=== PATIENT | female | born 1985 | race Caucasian/White ===

== ENCOUNTER 2016-04-23 14:37 | Emergency (ER) | payer OTHER ==
[2016-04-23 15:26] VITALS: BP 137/85
--- NOTE | 2016-04-23 15:50 | UC ---
Throat Pain/Nasal Munir HPI - HPI Summary HPI Summary: ST, fever, body aches, MURRIETA since yesterday. NO cough or nasal congestion. - History of Current Complaint Chief Complaint: UCRespiratory Stated Complaint: SORE THROAT Hx Obtained From: Patient Hx Last Menstrual Period: september ?: No Onset/Duration: Gradual Onset, Lasting Hours Severity: Moderate Cough: None Associated Signs & Symptoms: Positive: Fever. Negative: Vomiting - Allergies/Home Medications Allergies/Adverse Reactions: Allergies Allergy/AdvReac Type Severity Reaction Status Date / Time No Known Allergies Allergy Verified 04/23/16 15:20 Home Medications: Home Medications Dextromethorphan-Phenylephrine [Day-Time Cold/Flu Relief 10-5-325 mg/15Ml] [History] Pseudoephedrine-Guaifenesin [Mucinex D 60-600 mg] 04/23/16 [History] PMH/Surg Hx/FS Hx/Imm Hx - Surgical History Surgical History: Yes Surgery Procedure, Year, and Place: back/herniated disc lumbar - Family History Known Family History: Positive: None - Social History Occupation: Employed Full-time Alcohol Use: Rare Substance Use Type: None Smoking Status (MU): Light Every Day Tobacco Smoker Type: Cigarettes Amount Used/How Often: 1/2 ppd - Immunization History Most Recent Influenza Vaccination: none Review of Systems Constitutional: Fever, Chills, Fatigue Skin: Negative Eyes: Negative ENT: Sore Throat Respiratory: Negative Cardiovascular: Negative Gastrointestinal: Negative Genitourinary: Negative Motor: Negative Neurovascular: Negative Musculoskeletal: Negative Neurological: Headache Psychological: Negative All Other Systems Reviewed And Are Negative: Yes Physical Exam Triage Information Reviewed: Yes Appearance: Well-Appearing, Pain Distress - mild Vital Signs: Initial Vital Signs Temp 100.0 F 04/23/16 15:22 Pulse 111 04/23/16 15:22 Resp 16 04/23/16 15:22 BP 137/85 04/23/16 15:22 Pulse Ox 100 04/23/16 15:22 Vital Signs Reviewed: Yes Eye Exam: Normal Eyes: Positive: Conjunctiva Clear ENT: Positive: Pharyngeal erythema, TMs normal, Tonsillar swelling, Tonsillar exudate, Muffled/hoarse voice - muffled Dental Exam: Normal Neck: Positive: Supple, Enlarged Nodes @ - tonsillar Respiratory Exam: Normal Respiratory: Positive: Chest non-tender, Lungs clear, Normal breath sounds, No respiratory distress, No accessory muscle use Cardiovascular: Positive: No Murmur, Tachycardia Musculoskeletal Exam: Normal Neurological Exam: Normal Psychological Exam: Normal Skin Exam: Normal Throat Pain/Nasal Course/Dx - Differential Dx/Diagnosis Provider Diagnoses: Strep throat Discharge - Discharge Plan Condition: Stable Disposition: HOME Prescriptions: Amoxicillin (*) 875 mg PO BID #20 tab Patient Education Materials: Strep Throat (ED) Forms: *Work Release Referrals: No Primary Care Phys,NOPCP [Primary Care Provider] -
== END 2016-04-23 15:54 | disposition home or self-care (01) ==
LOC: UCEAST 14:37
DX: J02.0 Streptococcal pharyngitis (principal); F17.210 Nicotine dependence, cigarettes, uncomplicated
CPT/HCPCS: 87651; 99212; G0463

== ENCOUNTER 2016-05-26 11:58 | Emergency (ER) | payer OTHER ==
[2016-05-26 12:37] VITALS: BP 137/85
--- NOTE | 2016-05-26 12:50 | UC ---
Complaint Female HPI - HPI Summary HPI Summary: complaint of finding several lumps on her labia she thought it was razor burn but now they look like ulcers ulcers are sore and painful swollen lymph node on th right inguinal area for 1 day denies abnormal vaginal discharge denies dysuria LMP unsure currently on depo last testing for STD's - 12/2015 condoms use 90 % of the time no condom use with monogamous partner - History Of Current Complaint Chief Complaint: UCGU Stated Complaint: PERSONAL Time Seen by Provider: 05/26/16 12:41 Hx Last Menstrual Period: SEPTEMBER 2015 - ON DEPO SHOTS - Allergies/Home Medications Allergies/Adverse Reactions: Allergies Allergy/AdvReac Type Severity Reaction Status Date / Time No Known Allergies Allergy Verified 04/23/16 15:20 PMH/Surg Hx/FS Hx/Imm Hx Previously Healthy: Yes Endocrine History Of: Denies: Diabetes, Thyroid Disease Cardiovascular History Of: Denies: Cardiac Disorders, Hypertension Respiratory History Of: Denies: COPD, Asthma GI/ History Of: Denies: Ulcer - Surgical History Surgical History: Yes Surgery Procedure, Year, and Place: back/herniated disc lumbar - Family History Known Family History: Positive: None Negative: Cardiac Disease, Hypertension, Diabetes - Social History Occupation: Employed Full-time Lives: With Family Alcohol Use: Rare Substance Use Type: None Smoking Status (MU): Light Every Day Tobacco Smoker Type: Cigarettes Amount Used/How Often: 1/2 PPD, 16+ YEARS Cessation Counseling: Patient Advised to Stop - Immunization History Most Recent Influenza Vaccination: none Review of Systems Constitutional: Negative Skin: Negative Eyes: Negative ENT: Negative Respiratory: Negative Cardiovascular: Negative Gastrointestinal: Negative Genitourinary: Other - gential lesions Motor: Negative Neurovascular: Negative Musculoskeletal: Negative Neurological: Negative All Other Systems Reviewed And Are Negative: Yes Physical Exam Triage Information Reviewed: Yes Appearance: No Pain Distress, Well-Nourished Vital Signs: Initial Vital Signs Temp 98.3 F 05/26/16 12:26 Pulse 94 05/26/16 12:26 Resp 16 05/26/16 12:26 BP 137/85 05/26/16 12:26 Pulse Ox 99 05/26/16 12:26 Vital Signs Reviewed: Yes Eyes: Positive: Conjunctiva Clear ENT: Positive: Pharynx normal, TMs normal Neck: Positive: No Lymphadenopathy Respiratory: Positive: Lungs clear, Normal breath sounds, No respiratory distress Cardiovascular: Positive: RRR, No Murmur, Pulses Normal Abdomen Description: Positive: Nontender, No Organomegaly, Soft Musculoskeletal: Positive: No Edema Neurological: Positive: Alert Psychological Exam: Normal Skin Exam: Normal Skin: Positive: Other - External genitalia with several ulcerations with erythemaotus base left labia Vaginal vault is without discharge. Cervix is of normal color without lesion. The os is closed. There is no bleeding noted. Uterus is noted to be of normal size and nontender. No cervical motion tenderness is seen. No masses are palpated. The adnexa are without masses or tenderness. Complaint Female Dx - Course Course Of Treatment: exam completed. appears to be gential herpes. will start suppressive therapy and completed STD testing - Differential Dx/Diagnosis Differential Diagnosis/HQI/PQRI: Sexually Transmitted Disease Provider Diagnoses: genital herpes. sexually transmitted disease Discharge - Discharge Plan Condition: Stable Disposition: HOME Prescriptions: Lidocaine 2% VISCOUS* 1 ml TRANSDERM BID #1 btl ValACYclovir (*) [Valtrex 1 GM(*)] 1 gm PO BID #14 tab Patient Education Materials: Genital Herpes Simplex (ED), Sexually Transmitted Diseases (ED), Safe Sex (ED) Referrals: No Primary Care Phys,NOPCP [Primary Care Provider] - [facility] [place]] Additional Instructions: Your blood pressure is elevated. Please contact your primary care provider within 1 day -4 weeks for further evaluation. Please take antiviral medication as directed apply lidocaine as needed for pain Increase fluids and rest Take acetaminophen or ibuprofen for fever or pain Please review your discharge instructions. If your symptoms do not improve please call your primary care provider or return to urgent care.
[2016-05-27 12:50] LABS: Syphilis Index < 0.1 Index
[2016-05-28 15:46] LABS: Herpes Simplex Virus I IgG AB Negative (Negative); Herpes Simplex Virus II IgG AB Negative (Negative)
[2016-05-28 23:30] LABS: Herpes Simplex 1&2 IgM IFA Negative (Negative)
[2016-05-29 00:55] LABS: HS/VZ Source LABIA; Varicella Zoster Result Negative (Negative); Varicella Zoster Source LABIA
== END 2016-05-26 13:49 | disposition home or self-care (01) ==
LOC: UCEAST 11:58
DX: B00.9 Herpesviral infection, unspecified (principal)
CPT/HCPCS: 36415; 86592; 86694; 86695; 86696; 86703; 86803; 87491; 87529; 87591; 87798; 99212; G0463

== ENCOUNTER 2017-03-17 08:47 | Emergency (ER) | payer BC, OTHER ==
[2017-03-17 08:59] VITALS: BP 148/80
--- NOTE | 2017-03-17 09:21 | UC ---
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-C/o generalized muscular discomfort-no specific bone tenderness--did not hit head no LOC was about the work all day yesterday and drive herself her today - History of Current Complaint Chief Complaint: UCGeneralIllness Stated Complaint: BODY INJURY Time Seen by Provider: 03/17/17 09:07 Hx Obtained From: Patient Hx Last Menstrual Period: SEPTEMBER 2015 - ON DEPO SHOTS Onset/Duration: Sudden Onset, Lasting Days - 1 Timing: Constant Onset Severity: Moderate Current Severity: Moderate - Allergy/Home Medications Allergies/Adverse Reactions: Allergies Allergy/AdvReac Type Severity Reaction Status Date / Time No Known Allergies Allergy Verified 03/17/17 08:59 PMH/Surg Hx/FS Hx/Imm Hx Previously Healthy: No - Surgical History Surgical History: Yes Surgery Procedure, Year, and Place: back/herniated disc lumbar - Family History Known Family History: Positive: None Negative: Cardiac Disease, Hypertension, Diabetes - Social History Occupation: Employed Full-time Lives: With Family Substance Use Type: None Smoking Status (MU): Light Every Day Tobacco Smoker Type: Cigarettes Amount Used/How Often: 1/2 PPD, 16+ YEARS Cessation Counseling: Patient Advised to Stop - Immunization History Most Recent Influenza Vaccination: none Review of Systems Constitutional: Negative Skin: Negative Eyes: Negative ENT: Negative Respiratory: Negative Cardiovascular: Negative Gastrointestinal: Negative Genitourinary: Negative Motor: Negative Neurovascular: Negative Musculoskeletal: Myalgia Neurological: Negative Psychological: Negative Is Patient Immunocompromised?: No All Other Systems Reviewed And Are Negative: Yes Physical Exam Triage Information Reviewed: Yes Appearance: Well-Appearing, No Pain Distress, Well-Nourished Vital Signs: Initial Vital Signs Temp 97.3 F 03/17/17 08:54 Pulse 69 03/17/17 08:54 Resp 18 03/17/17 08:54 BP 148/80 03/17/17 08:54 Pulse Ox 100 03/17/17 08:54 Vital Signs Reviewed: Yes Eye Exam: Normal Eyes: Positive: Conjunctiva Clear ENT Exam: Normal ENT: Positive: Normal ENT inspection, Hearing grossly normal. Negative: Nasal congestion, Tonsillar swelling, Tonsillar exudate, Trismus, Muffled voice, Hoarse voice Dental Exam: Normal Neck exam: Normal Neck: Positive: Supple, Nontender, No Lymphadenopathy Respiratory Exam: Normal Respiratory: Positive: Chest non-tender, Lungs clear, Normal breath sounds, No respiratory distress, No accessory muscle use Cardiovascular Exam: Normal Cardiovascular: Positive: RRR, No Murmur, Pulses Normal, Brisk Capillary Refill Abdominal Exam: Normal Musculoskeletal Exam: Normal Musculoskeletal: Positive: Strength Intact, ROM Intact, No Edema, Other: - stregth bilaterally equal in both lower extremities, no numbness tingling or weakness noted or complainted about Neurological Exam: Normal Neurological: Positive: Alert, Muscle Tone Normal Psychological Exam: Normal Skin Exam: Normal Course/Dx - Course Course Of Treatment: rest NSAID, heat, gentle exercise and stretching follow with pt as needed, follow BP with pcp - Differential Dx - Multi-Symptom Provider Diagnoses: muscle strain, elevated blood pressure with out diagnosis of hypertension, nicotine dependent Discharge - Discharge Plan Condition: Stable Disposition: HOME Patient Education Materials: Ibuprofen (By mouth), Muscle Strain (ED), Hypertension (ED), Core Strengthening Exercises (GEN) Forms: *Work Release Referrals: [facility] [Outside] - 2 Weeks No Primary Care Phys,NOPCP [Primary Care Provider] -
== END 2017-03-17 09:37 | disposition home or self-care (01) ==
LOC: UCEAST 08:47
DX: T14.8XXA Other injury of unspecified body region, initial encounter (principal); R03.0 Elevated blood-pressure reading, without diagnosis of hypertension; F17.210 Nicotine dependence, cigarettes, uncomplicated; W10.9XXA Fall (on) (from) unspecified stairs and steps, initial encounter; Y92.9 Unspecified place or not applicable
CPT/HCPCS: 99211; G0463

== ENCOUNTER 2018-04-30 10:07 | Emergency (ER) | payer SELFPAY ==
[2018-04-30 10:23] VITALS: BP 149/100
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
== END 2018-04-30 12:00 | disposition home or self-care (01) ==
LOC: UCEAST 10:07
DX: R07.89 Other chest pain (principal); F17.210 Nicotine dependence, cigarettes, uncomplicated; V49.40XA Driver injured in collision with unspecified motor vehicles in traffic accident, initial encounter; Y92.9 Unspecified place or not applicable
CPT/HCPCS: 70450; 99211; G0463

== ENCOUNTER 2018-08-31 16:39 | Emergency (ER) | payer BC ==
[2018-08-31 16:48] VITALS: BP 143/87
[2018-08-31] MEDS ORDERED: Tetan/Diph/Pertus SYR(Tdap)* 0.5 ML SYR(BOOSTRIX) use SYR IM ONE (16:49)
--- NOTE | 2018-08-31 16:50 | UC ---
Laceration HPI - HPI Summary HPI Summary: 33 yo female presents with right hand laceration. 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 She sustained a laceration to her right hand. She bandaged the area and came to . Unsure date of last tetanus. She is right handed. - History Of Current Complaint Chief Complaint: UCLaceration Stated Complaint: FINGER LACERATION Time Seen by Provider: 08/31/18 16:49 Hx Obtained From: Patient Hx Last Menstrual Period: 04/25/18 Laceration Location: Hand Mechanism Of Injury: Sharp Trauma Onset/Duration: Sudden Onset Severity: Moderate Pain Intensity: 5 Pain Scale Used: 0-10 Numeric - Allergies/Home Medications Allergies/Adverse Reactions: Allergies Allergy/AdvReac Type Severity Reaction Status Date / Time No Known Allergies Allergy Verified 08/31/18 16:48 Home Medications: Home Medications NK [No Home Medications Reported] 08/31/18 [History Confirmed 08/31/18] PMH/Surg Hx/FS Hx/Imm Hx - Additional Past Medical History Additional PMH: None - Surgical History Surgical History: Yes Surgery Procedure, Year, and Place: back/herniated disc lumbar surgical repair - Family History Known Family History: Positive: None Negative: Cardiac Disease, Hypertension, Diabetes - Social History Occupation: Employed Full-time Lives: With Family Alcohol Use: Weekly Substance Use Type: None Smoking Status (MU): Heavy Every Day Tobacco Smoker Type: Cigarettes Amount Used/How Often: 1/2 PPD, 16+ YEARS - Immunization History Most Recent Influenza Vaccination: none Review of Systems All Other Systems Reviewed And Are Negative: Yes Constitutional: Positive: Negative Skin: Positive: Other - Right hand laceration Respiratory: Positive: Negative Cardiovascular: Positive: Negative Neurovascular: Positive: Negative Musculoskeletal: Positive: Negative Neurological: Positive: Negative Psychological: Positive: Negative Physical Exam - Summary Physical Exam Summary: GENERAL: NAD. WDWN. No pain distress. SKIN: RIGHT HAND: at the ulnar aspect of the 5th MCP there is a crescent shaped laceration 4.5cm just through the dermis in a flap like fashion. Clean wound. Scant active bleeding. The tendon sheath is visualized at the lateral MCP and is intact without fraying, puncture, or disruption. NECK: Supple. Nontender. No lymphadenopathy. CHEST: No accessory muscle use. Breathing comfortably and in no distress. CV: Pulses intact. Cap refill <2seconds MSK: FROM at right 5th digit with intact strength during flexion and extension at MCP NEURO: Alert. PSYCH: Age appropriate behavior. Triage Information Reviewed: Yes Vital Signs: Initial Vital Signs Temp 98.8 F 08/31/18 16:44 Pulse 84 08/31/18 16:44 Resp 18 08/31/18 16:44 BP 143/87 08/31/18 16:44 Pulse Ox 100 08/31/18 16:44 Vital Signs Reviewed: Yes Laceration Repair - Laceration Repair 1 Description: Irregular - crescent shaped Laceration Size After Repair: Length (cm) - 4.5 Modified For Repair: No Anesthesia Used: 2.0% Lido Irrigation With Pressure Irrigation Device: Yes Closure Material: Sutures - #12 Closure Method: Single Layer Suture Of: Skin Suture Type: Prolene - 5-0 Laceration Course/Dx - Course/Dx Course Of Treatment: The procedure was explained to the pt and all questions were answered. A time out was performed, witnessed, and signed. The area was irrigated with 200mL sterile saline. 2.5mL of 2% lidocaine without epi was administered and good anesthetization was achieved. In the usual sterile fashion, TWELVE 5-0 prolene interrupted sutures were placed. The wound was bandaged with xeroform and telfa. Pt tolerated procedure well. tdap updated today - Diagnosis Provider Diagnosis: Laceration of right hand Discharge - Sign-Out/Discharge Documenting (check all that apply): Patient Departure All imaging exams completed and their final reports reviewed: No Studies - Discharge Plan Condition: Stable Disposition: HOME Patient Education Materials: Care For Your Stitches (ED), Laceration (DC) Referrals: No Primary Care Phys,NOPCP [Primary Care Provider] - Additional Instructions: If you develop a fever, shortness of breath, chest pain, new or worsening symptoms - please call your PCP or go to the ED immediately. Your blood pressure was slightly elevated at todays visit. Please see your primary provider within 4 weeks for recheck and re-evaluation. 1) Please keep the area bandaged, clean, dry, and intact for the next 48hours and then keep covered daily with a bandaged until sutures are removed. 2) If you develop a fever, colored or thick discharge, increased pain or swelling - please call your PCP or return for a wound check. 3) Please return in 10-14 days to have your TWELVE sutures removed. - Billing Disposition and Condition Condition: STABLE Disposition: Home - Attestation Statements Provider Attestation: Per institutional requirements, I have reviewed the chart, however, I was not consulted specifically or made aware of this patient by the midlevel provider. I did not personally evaluate, interact with , or disposition this patient.
[2018-08-31] MEDS ORDERED: Lidocaine 2% PF * 5 ML VIAL INJ ONE (17:02)
== END 2018-08-31 18:06 | disposition home or self-care (01) ==
LOC: UCEAST 16:39
DX: S61.411A Laceration without foreign body of right hand, initial encounter (principal); W26.9XXA Contact with unspecified sharp object(s), initial encounter; Y93.G1 Activity, food preparation and clean up; Y92.9 Unspecified place or not applicable; Z23 Encounter for immunization; F17.210 Nicotine dependence, cigarettes, uncomplicated
CPT/HCPCS: 12002; 90471; 90715; 99211; G0463

== ENCOUNTER 2021-12-05 07:23 | Inpatient (IN) ==
[2021-12-05] MEDS ORDERED: Promethazine INJ(RESTRICTED) 25 MG/ML 1 ml VIAL IV PRN (07:29)
[2021-12-05] MEDS ORDERED: Buffered Lidocaine 1% SYRIN 1 ml INTRADERM ONE (07:29)
[2021-12-05] MEDS ORDERED: Nalbuphine 10 MG/ML 1 ML VIAL IV PRN (07:29)
[2021-12-05] MEDS ORDERED: Lactated Ringers 1000 ml BAG 1,000 ML IV ONE (07:29)
[2021-12-05] MEDS ORDERED: Sodium Citrate/Citric Acid LIQ 15 ML UDC PO ONE (07:29)
[2021-12-05 07:55] LABS: ABS Basophils 0.1 10^3/ul (0-0.2); ABS Eosinophils 0.1 10^3/ul (0-0.6); ABS Lymphocytes 1.5 10^3/ul (1.0-4.8); ABS Monocytes 0.8 10^3/ul (0-0.8); Hematocrit 38 % (35-47); Hemoglobin 12.6 g/dL (12.0-16.0); Lymphocyte % 14.3 %; Mean Corpuscular HGB Conc 34 g/dL (31-36); Mean Corpuscular Hemoglobin 32 pg (27-31); Mean Corpuscular Volume 94 fL (80-97); Mean Platelet Volume 9.6 fL (7.4-10.4); Platelet Count 226 10^3/uL (150-450); Red Blood Count 3.97 10^6 /uL (3.70-4.87); Red Cell Distribution Width 14 % (10-15); White Blood Count 10.5 10^3/uL (3.5-10.8)
[2021-12-05] MEDS ORDERED: ceFOXitin 2 GM PREMIX 50 ML IVPB ONE (08:00)
[2021-12-05] MEDS ORDERED: Lactated Ringers 1000 ml BAG 1,000 ML IV SCH ×2 (08:00→10:00)
[2021-12-05] MEDS ORDERED: Morphine PF AMP (0.5MG/ML) 5 MG/10 ML AMP ONE (08:15)
[2021-12-05] MEDS ORDERED: Oxytocin 10 UNITS/ML 1 ML VIAL ONE ×2 (08:45→09:05)
[2021-12-05] MEDS ORDERED: Dexmedetomidine 200 mcg/2 ml 2 ml VIAL (200 mcg) ONE (08:45)
[2021-12-05 09:23] LABS: Urine Appearance Clear; Urine Bilirubin Negative (Negative); Urine Blood Negative (Negative); Urine Color Straw; Urine Glucose Negative (Negative); Urine Ketones Negative (Negative); Urine Nitrite Negative (Negative); Urine Protein Negative (Negative); Urine Specific Gravity 1.006 (1.002-1.030); Urine Urobilinogen Negative (Negative)
[2021-12-05 09:28] LABS: Urine Bacteria Absent (Absent); Urine Red Blood Cell Absent (Absent); Urine Squamous Epithelial Cell Present (Absent); Urine White Blood Cell Trace(0-5/hpf) (Absent)
[2021-12-05] MEDS ORDERED: Witch Hazel PAD JAR TOPICAL PRN (09:35)
[2021-12-05] MEDS ORDERED: Dibucaine 1% OINT 28.35 GM TUBE PR PRN (09:35)
[2021-12-05] MEDS ORDERED: Glycerin ADULT 2.4 gm SUPP PR PRN (09:35)
[2021-12-05] MEDS ORDERED: Ondansetron 4 mg VIAL 2 MG/ML 2 ml VIAL IV PRN ×2 (09:45→13:53)
[2021-12-05] MEDS ORDERED: Naloxone 0.4 mg VIAL 0.4 mg/ml 1 ml VIAL IV PRN ×2 (09:45→09:46)
[2021-12-05] MEDS ORDERED: oxyCODONE/Acetamin 5/325 mg TAB PO PRN ×2 (09:45→09:46)
[2021-12-05] MEDS ORDERED: fentaNYL 100 mcg/2 ml 50 MCG/ML VIAL IV PRN (09:45)
[2021-12-05] MEDS ORDERED: Oxytocin in LR 20,000 MILLI.UNIT/1,000 ML BAG IV SCH (09:45)
[2021-12-05] MEDS ORDERED: Prochlorperazine 5 mg/ml 2 ml VIAL (10 mg) IV PRN (09:46)
[2021-12-05] MEDS ORDERED: Scopolamine 1 mg/72hr PATCH TRANSDERM PRN (09:46)
[2021-12-05] MEDS ORDERED: Oxytocin in LR 20,000 MILLI.UNIT/1,000 ML BAG IV ONE (09:46)
[2021-12-05 10:14] LABS: Urine Benzodiazepine Screen None Detected (None Detect); Urine Cannabinoids Screen None Detected (None Detect); Urine Opiates Screen None Detected (None Detect)
[2021-12-05] MEDS ORDERED: Metoclopramide 5 MG/ML VIAL (10 mg) IV PRN (13:53)
[2021-12-05] MEDS ORDERED: Naloxone 0.4 mg VIAL 0.4 mg/ml 1 ml VIAL IV PUSH PRN (13:53)
[2021-12-05] MEDS ORDERED: Acetaminophen IV 1 GM/100ML 1,000 MG/100 ML BAG IV PRN (13:53)
[2021-12-06 08:06] LABS: ABS Eosinophils 0.1 10^3/ul (0-0.6); ABS Lymphocytes 1.3 10^3/ul (1.0-4.8); ABS Monocytes 0.8 10^3/ul (0-0.8); ABS Neutrophils 9.5 10^3/ul (1.5-7.7); Eosinophil % 0.8 %; Hematocrit 33 % (35-47); Hemoglobin 11.3 g/dL (12.0-16.0); Lymphocyte % 11.4 %; Mean Corpuscular HGB Conc 35 g/dL (31-36); Mean Corpuscular Hemoglobin 32 pg (27-31); Mean Corpuscular Volume 94 fL (80-97); Mean Platelet Volume 9.3 fL (7.4-10.4); Platelet Count 182 10^3/uL (150-450); Red Blood Count 3.52 10^6 /uL (3.70-4.87); Red Cell Distribution Width 13 % (10-15); White Blood Count 11.8 10^3/uL (3.5-10.8)
[2021-12-07 10:57] VITALS: BP 139/83
== END 2021-12-07 12:00 | disposition home or self-care (01) | DRG 787 ==
LOC: MCHOB 07:23
PROVIDERS: ADMIT Obstetrics & Gynecology; ATTEND Obstetrics & Gynecology